=== PATIENT | female | born 1960 | race Caucasian/White ===

== ENCOUNTER 2019-09-25 11:27 | Outpatient (CLI) | payer BC ==
--- NOTE | 2019-09-25 11:50 | RAD ---
EXAM: XR Knee Rt 3 View PROVIDED CLINICAL HISTORY: Pain FINDINGS: There is no evidence for fracture or other acute osseous abnormality. Alignment appears anatomic. Sherie nt spaces appear preserved. IMPRESSION: No evidence for an acute osseous abnormality or significant arthropathy.
--- NOTE | 2019-09-25 11:50 | RAD ---
EXAM: XR Hip Rt 2-3 View PROVIDED CLINICAL HISTORY: Pain FINDINGS: There is no evidence for fracture or other acute osseous abnormality. Alignment appears anatomic. Sherie nt spaces appear preserved. Surgical clips overlie the pelvis. Amorphous mineralization adjacent to the greater trochanter cranially may reflect changes of calcific peritendinitis. IMPRESSION: No evidence for an acute osseous abnormality or significant arthropathy.
--- NOTE | 2019-09-25 11:51 | RAD ---
EXAM: XR Lumbar Spine 2 Or 3 View PROVIDED CLINICAL HISTORY: Pain COMPARISON: None FINDINGS: Neutral lateral, flexion lateral and extension lateral radiographs of the lumbar spine submitted. Lum bar alignment appears normal. No evidence for abnormal translational motion with flexion and extension. Vertebral body heights appear preserved. Endplate degenerative changes are seen at L2-3 an d L3-4. IMPRESSION: No evidence for abnormal translational motion.
== END 2019-09-25 11:28 | disposition home or self-care (01) ==
LOC: RAD 11:27
PROVIDERS: ATTEND Nurse Practitioner Family
DX: M25.561 Pain in right knee (principal); M54.16 Radiculopathy, lumbar region; M25.551 Pain in right hip
CPT/HCPCS: 72100

== ENCOUNTER 2019-12-19 12:07 | Outpatient (CLI) | payer BC ==
--- NOTE | 2019-12-19 13:10 | ULT ---
Venous duplex sonogram right lower extremity HISTORY: Right leg pain and edema. FINDINGS: The right common femoral vein and greater saphenous junction were evaluated along with the femoral, deep femoral, popliteal, and posterior tibial veins. There is good color and spectral Doppler flow, compression, and augmentation. Evaluation of the lateral aspect of the calf in region of palpable concern was performed. No focal ma sses or fluid collections. IMPRESSION : No sonographic evidence of DVT in the right lower extremity. Normal exam. No abnormalities are demons trated.
== END 2019-12-19 12:08 | disposition home or self-care (01) ==
LOC: BICULT 12:07
PROVIDERS: ATTEND Surgery
DX: I82.401 Acute embolism and thrombosis of unspecified deep veins of right lower extremity (principal)

== ENCOUNTER 2020-01-21 07:35 | Outpatient (CLI) | payer BC, OTHER ==
[2020-01-21 15:42] LABS: Hemoglobin 13.6 g/dL (12.0-16.0); Mean Corpuscular HGB CONC 32.9 g/dL (32.0-36.0); Mean Corpuscular Hemoglobin 30.4 pg (27.0-31.0); Mean Corpuscular Volume 92.3 fL (78.0-98.0); Mean Platelet Volume 9.4 fL (7.4-10.4); Platelet Count 215 thou/uL (130-400); RBC Distribution Width 11.4 % (11.5-14.5); Red Blood Cell (RBC) Count 4.48 mill/uL (4.20-5.40)
[2020-01-21 15:52] LABS: INR-International Normal Ratio 0.9; Prothrombin Time 12.2 SEC (12.0-14.7)
[2020-01-21 15:53] LABS: PTT 27.2 SEC (22.9-36.1)
[2020-01-21 16:07] LABS: Anion Gap 10 mmol/L (10-20); BUN (Urea Nitrogen) 14 mg/dL (9.8-20.1); Calc. Creatinine Clearance 0 mL/min (70-130); Calcium 8.9 mg/dL (7.8-10.44); Carbon Dioxide 27 mmol/L (22-29); Chloride 108 mmol/L (98-107); Estimated GFR-MDRD 82; Glucose 69 mg/dL (70-105); Sodium 141 mmol/L (136-145)
[2020-01-22 11:19] LABS: SARS-CoV-2 MS2 Positive; SARS-CoV-2 N Gene Negative; SARS-CoV-2 S Gene Negative; SARS-CoV-2 orf1ab Negative
--- NOTE | 2020-01-27 15:41 | EKG ---
Test Reason : Blood Pressure : / mmHG Vent. Rate : 067 BPM Atrial Rate : 067 BPM P-R Int : 170 ms QRS Dur : 092 ms QT Int : 412 ms P-R-T Axes : 059 060 030 degrees QTc Int : 435 ms Normal sinus rhythm Low voltage QRS Borderline ECG When compared with ECG of 02-AUG-2013 09:05, Nonspecific T wave abnormality now evident in Anterior leads Confirmed by LOGAN RENDON (2) on 01/27/2020 3:40:49 PM Referred By: GHADA Confirmed By:LOGAN RENDON
== END 2020-01-21 07:36 | disposition home or self-care (01) ==
LOC: LABBT 07:35
PROVIDERS: ATTEND Surgery
DX: Z01.818 Encounter for other preprocedural examination (principal); Z11.59 Encounter for screening for other viral diseases; M51.16 Intervertebral disc disorders with radiculopathy, lumbar region; M48.061 Spinal stenosis, lumbar region without neurogenic claudication
CPT/HCPCS: 80048; 85027; 85610; 85730; 87635; 93005; 93010; U0003

== ENCOUNTER 2020-01-24 07:48 | Day surgery (SDC) | payer BC ==
[2020-01-24] MEDS ORDERED: Ketamine 50 MG/ML (10ML VIAL) ONE (07:51)
[2020-01-24] MEDS ORDERED: Fentanyl 250 MCG/5 ML VIAL ONE (07:51)
[2020-01-24] MEDS ORDERED: Midazolam HCl 2 mg/2 ml Vial ONE ×2 (07:51→08:10)
[2020-01-24] MEDS ORDERED: Levofloxacin 500 mg/D5W 100 ml Premix Bag ONE (08:09)
[2020-01-24] MEDS ORDERED: Promethazine HCl 25 MG/ML VIAL SLOW IVP PRN ×2 (08:09→11:27)
[2020-01-24] MEDS ORDERED: Clindamycin/D5W 900 mg/50 ml Premix Bag ONE (08:09)
[2020-01-24] MEDS ORDERED: Ondansetron HCl/PF 4 MG/2 ML Vial IVP PRN ×2 (08:09→11:27)
[2020-01-24] MEDS ORDERED: Promethazine HCl 25 MG/ML VIAL IM PRN ×2 (08:09→11:27)
[2020-01-24] MEDS ORDERED: Thrombin 5000 UNITS/5 ML VIAL ONE (09:42)
[2020-01-24] MEDS ORDERED: Ketorolac Tromethamine 30 MG/ML VIAL ONE (10:28)
[2020-01-24] MEDS ORDERED: Rocuronium Bromide 10 MG/ML (10ML VIAL) ONE (10:28)
[2020-01-24] MEDS ORDERED: PROPOFOL 200 MG/20 ML VIAL ONE (10:28)
[2020-01-24] MEDS ORDERED: Ondansetron PF 4 MG/2 ML Vial ONE (10:28)
[2020-01-24] MEDS ORDERED: diphenhydrAMINE 50 MG/ML VIAL ONE (10:28)
[2020-01-24] MEDS ORDERED: Glycopyrrolate 0.2 MG/ML 5 ML SYRINGE ONE (10:28)
[2020-01-24] MEDS ORDERED: EPHEDRINE 25 MG/5 ML SYRINGE ONE (10:28)
[2020-01-24] MEDS ORDERED: PHENYLEPHRINE-NS 100 MCG/ML 10 ML SYRINGE ONE ×2 (10:28→11:09)
[2020-01-24] MEDS ORDERED: Dexamethasone 20 MG/5 ML VIAL ONE (10:28)
[2020-01-24] MEDS ORDERED: Phenylephrine 10 MG/ML VIAL ONE (11:08)
[2020-01-24] MEDS ORDERED: Bisacodyl 10 MG SUPP PR PRN (11:13)
[2020-01-24] MEDS ORDERED: Milk Of Magnesia 30 ML UDCUP PO PRN (11:13)
[2020-01-24] MEDS ORDERED: Ondansetron PF 4 MG/2 ML Vial IVP PRN (11:13)
[2020-01-24] MEDS ORDERED: traMADol HCl 50 MG TAB PO PRN (11:13)
[2020-01-24] MEDS ORDERED: Mag-Al 1200 mg/1200 mg/30 ML UDCUP PO PRN (11:13)
[2020-01-24] MEDS ORDERED: Fleet Enema 133 ML BOT PR PRN (11:13)
[2020-01-24] MEDS ORDERED: diphenhydrAMINE 25 MG CAP PO PRN (11:19)
[2020-01-24] MEDS ORDERED: Fentanyl 100 MCG/2 ML VIAL ONE ×2 (11:26→12:21)
[2020-01-24] MEDS ORDERED: Meperidine HCl/PF 25 MG/ML VIAL SLOW IVP PRN (11:27)
[2020-01-24] MEDS ORDERED: Morphine Sulfate 2 MG/ML SYRINGE SLOW IVP PRN (11:27)
[2020-01-24] MEDS ORDERED: PACU-Morphine 4MG/ML VIAL SLOW IVP PRN (11:27)
[2020-01-24] MEDS ORDERED: Promethazine HCl 25 MG/ML VIAL ONE (11:36)
[2020-01-24] MEDS ORDERED: HYDROmorphone 0.5 MG/0.5 ML SYRINGE ONE ×2 (12:05→12:13)
[2020-01-24] MEDS: traMADol HCl 50 MG TAB PO PRN ×2 (16:07→21:51)
[2020-01-24] MEDS: Gabapentin 300 MG CAP PO SCH ×2 (16:08→21:09)
[2020-01-24] MEDS: tiZANidine HCl 4 MG TAB PO PRN (16:08)
[2020-01-24] MEDS: Clindamycin/D5W 900 MG in Premix Bag 1 BAG IVPB SCH ×2 (16:09→21:11)
[2020-01-24] MEDS: Sodium Chloride 0.9% 1,000 ML IV SCH (16:11)
[2020-01-24 16:57] VITALS: BMI 31.9
--- NOTE | 2020-01-24 17:09 | OP ---
DATE OF PROCEDURE: 01/24/2020 LOCATION: OR 12. WOUND CLASSIFICATION: Type 1 wound. SURGEON: Wero Payne MD [employer]ITY [employer] INSPECTOR: Carolin Bo PA-C PREPROCEDURE DIAGNOSIS: Low back with right leg pain with right L4 and right L5 radiculopathy with disk extrusion. POSTPROCEDURE DIAGNOSIS: Low back with right leg pain with right L4 and right L5 radiculopathy with disk extrusion. PROCEDURES PERFORMED: 1. Right L3-L4 hemilaminotomy, foraminotomy, and diskectomy. 2. Right L4-L5 hemilaminotomy, foraminotomy, and diskectomy. 3. Use of operative microscope for microdissection. DESCRIPTION OF PROCEDURE: After informed consent was obtained from the patient, the patient was brought to the OR. Proper patient, pause, and identification were carried out. She was placed under excellent endotracheal anesthesia and positioned prone on the OR table. A small linear incision was made dorsally or drawn out dorsally and this area was sterilely cleansed, prepared, and draped. Proper patient, pause, and identification were carried out. The wound was then opened with combination of sharp, monopolar, and blunt dissection. Right L3-L4 and right L4-L5 segments were exposed. Retractors brought in and localization film confirmed area of interest. We then used the operative microscope for microdissection for right L3-L4 and right L4-L5 hemilaminotomy, foraminotomy with diskectomies at both levels. Copious irrigation occurred throughout as did maximizing hemostasis. There was no spinal fluid leak. The wound was then closed in anatomic layers. We assured freedom of the right L4 and right L5 nerve roots. Vancomycin powder was sprinkled. The patient then emerged from anesthesia. Job ID: [id number]
[2020-01-24] MEDS: Morphine 2 MG/ML SYRINGE SLOW IVP PRN (19:21)
[2020-01-25] MEDS: tiZANidine HCl 4 MG TAB PO PRN (00:34)
[2020-01-25] MEDS: Morphine 2 MG/ML SYRINGE SLOW IVP PRN (03:24)
[2020-01-25] MEDS: Sodium Chloride 0.9% 1,000 ML IV SCH (05:12)
[2020-01-25] MEDS ORDERED: Levothyroxine Sodium 88 MCG TAB PO SCH (06:00)
[2020-01-25] MEDS: traMADol HCl 50 MG TAB PO PRN (06:35)
[2020-01-25 07:32] VITALS: BP 98/66; TEMP 97.8
[2020-01-25] MEDS: Gabapentin 300 MG CAP PO SCH (08:16)
[2020-01-25] MEDS ORDERED: azaTHIOprine 50 MG TAB PO SCH (09:00)
[2020-01-25] MEDS ORDERED: Calcium Carbonate 600 MG + Vit D TAB PO SCH (09:00)
[2020-01-25] MEDS ORDERED: Losartan 25 MG TAB PO SCH (09:00)
[2020-01-25] MEDS ORDERED: Cyanocobalamin (Vitamin B-12) 1,000 MCG TAB PO SCH (09:00)
--- NOTE | 2020-01-25 10:32 | PRG ---
DATE OF SERVICE: 01/25/2020 Ms. Robbins is postoperative day 1 from lumbar decompression diskectomy. She is doing well with resolution in her leg pain. She is mobilizing. She is neurologically intact, has met criteria for dismissal. We will discharge her home. She was educated regarding interim postoperative course. Job ID: [id number]
== END 2020-01-25 10:30 | disposition home or self-care (01) ==
LOC: SDC 07:48 → SURG A 11:13 → SDC 01-25 10:30
PROVIDERS: ATTEND Surgery
PROC: 01NB0ZZ Release Lumbar Nerve, Open Approach (ICD-10-PCS; principal; 2020-01-24)
PROC: 0SB20ZZ Excision of Lumbar Vertebral Disc, Open Approach (ICD-10-PCS; principal; 2020-01-24)
DX: M51.16 Intervertebral disc disorders with radiculopathy, lumbar region (principal); M48.061 Spinal stenosis, lumbar region without neurogenic claudication; E03.9 Hypothyroidism, unspecified; Z79.82 Long term (current) use of aspirin; Z79.899 Other long term (current) drug therapy; Z88.1 Allergy status to other antibiotic agents; Z88.5 Allergy status to narcotic agent; Z88.6 Allergy status to analgesic agent; Z88.8 Allergy status to other drugs, medicaments and biological substances; Z91.048 Other nonmedicinal substance allergy status
CPT/HCPCS: 76000; J1100; J1170; J1200; J1885; J1956; J2250; J2270; J2370; J2405; J2550; J2704; J3010; J3370; J3490; J7500